=== PATIENT | female | born 1975 | race Caucasian/White ===

== ENCOUNTER → 2018-01-28 11:54 | Outpatient (CLI) | payer OTHER, SELFPAY ==
[2018-01-28 14:03] LABS: hCG Titer Quant., Serum < 1 mIU/mL (<9 non-preg)
[2018-01-28 14:09] LABS: Hemoglobin A1c 5.3 % (4.2-6.3)
[2018-01-28 14:58] LABS: Progesterone Level 0.17 ng/mL (See Comment)
[2018-01-28 21:32] LABS: Estradiol 46.1 pg/mL; Free T3 3.1 pg/mL (2.18-3.98); T4 Free Direct 1.27 ng/dL (0.76-1.46); Thyroid Stim Hormone (TSH) 1.47 uIU/mL (0.358-3.74)
== END ==
PROVIDERS: Visit Provider Obstetrics & Gynecology
DX: N92.6 Irregular menstruation, unspecified (principal)
CPT/HCPCS: 36415; 82670; 83036; 84144; 84403; 84439; 84443; 84481; 84702

== ENCOUNTER → 2018-01-30 14:12 | Outpatient (CLI) | payer OTHER, SELFPAY ==
--- NOTE | 2018-01-30 14:16 | US_ITS ---
STUDY: ULTRASOUND TRANSVAGINAL CLINICAL: Female, 42 years old. Irregular menses. TECHNIQUE: Transabdominal and Transvaginal COMPARISON: 12/20/2014. FINDINGS: Normal uterine size measuring 9.3 x 5.4 x 4.1 cm in maximal craniocaudal dimension. There is a 1.1 cm uterine fibroid in the posterior uterine body. Uterus is anteverted and midline. Normal endometrial thickness measuring 5 mm. There are no endometrial masses, and there is no fluid in the endometrial cavity. Endometrial echoes are hyperechoic. Normal uterine cervix. Small nabothian cyst. Normal right ovary, measuring 2.6 x 2.0 x 1.6 cm. There are multiple follicles without a dominant cyst. Normal left ovary, measuring 3.8 x 4.9 x 4.3 cm. There is a complex 3.8 cm cystic mass. Another complex mass measures 3 cm greatest dimension. Recommend follow-up in one or 2 menstrual periods. There is no free fluid in the pelvis. Normal bladder contour with a volume of 4 64 cc. US/Transvaginal w/Preg US IMPRESSION: Complex cystic masses in the left ovary, most likely complicated cysts. Recommend follow-up in one or 2 menstrual periods. Small uterine fibroid. Electronically Signed: Adam Mai MD at 16:31 EDT , Service support ,
--- NOTE | 2018-01-30 14:16 | US_ITS ---
STUDY: ULTRASOUND TRANSVAGINAL CLINICAL: Female, 42 years old. Irregular menses. TECHNIQUE: Transabdominal and Transvaginal COMPARISON: 12/20/2014. FINDINGS: Normal uterine size measuring 9.3 x 5.4 x 4.1 cm in maximal craniocaudal dimension. There is a 1.1 cm uterine fibroid in the posterior uterine body. Uterus is anteverted and midline. Normal endometrial thickness measuring 5 mm. There are no endometrial masses, and there is no fluid in the endometrial cavity. Endometrial echoes are hyperechoic. Normal uterine cervix. Small nabothian cyst. Normal right ovary, measuring 2.6 x 2.0 x 1.6 cm. There are multiple follicles without a dominant cyst. Normal left ovary, measuring 3.8 x 4.9 x 4.3 cm. There is a complex 3.8 cm cystic mass. Another complex mass measures 3 cm greatest dimension. Recommend follow-up in one or 2 menstrual periods. There is no free fluid in the pelvis. Normal bladder contour with a volume of 4 64 cc. US/Pelvic (Non ) IMPRESSION: Complex cystic masses in the left ovary, most likely complicated cysts. Recommend follow-up in one or 2 menstrual periods. Small uterine fibroid. Electronically Signed: Adam Mai MD at 16:31 EDT , Service support ,
== END ==
PROVIDERS: Visit Provider Obstetrics & Gynecology
DX: N92.6 Irregular menstruation, unspecified (principal)
CPT/HCPCS: 76817; 76856; 93976

== ENCOUNTER → 2018-08-11 15:57 | Outpatient (CLI) | payer OTHER, SELFPAY ==
--- NOTE | 2018-08-11 16:00 | US_ITS ---
STUDY: ULTRASOUND TRANSVAGINAL CLINICAL: Female, 42 years old. Follow-up of left ovarian cyst TECHNIQUE: Transvaginal COMPARISON: January 30, 2018 FINDINGS: The uterus is normally anteverted and measures 9.3 x 4.9 x 4.5 cm. The small 1.1 cm fibroid noted in the prior examination is not appreciated in today's study. The endometrial canal is 1.2 cm in thickness. Both ovaries are visualized and demonstrate normal Doppler flow. The right ovary measures 2.2 x 2.3 x 1.3 cm. The left ovary is larger and measures 5.7 x 3.2 x 3.4 cm. There is a 4.0 x 2.8 x 3.1 cm cyst in the left ovary. This is slightly larger than the cyst which had been seen in the prior examination and still has some debris within it. There is no free fluid in the cul-de-sac. US/Pelvic (Non ) IMPRESSION: The tiny 1 cm fibroid noted in the previous study is not appreciated in today's examination. There is a 4.0 x 2.8 x 3.1 cm left ovarian cyst. This is slightly larger than the cyst which had been seen previously. There is still some debris within the cyst Electronically Signed: Rodriguez Hunter MD at 6:38 EDT Tel , Service support ,
--- NOTE | 2018-08-11 16:22 | US_ITS ---
STUDY: ULTRASOUND TRANSVAGINAL CLINICAL: Female, 42 years old. Follow-up of left ovarian cyst TECHNIQUE: Transvaginal COMPARISON: January 30, 2018 FINDINGS: The uterus is normally anteverted and measures 9.3 x 4.9 x 4.5 cm. The small 1.1 cm fibroid noted in the prior examination is not appreciated in today's study. The endometrial canal is 1.2 cm in thickness. Both ovaries are visualized and demonstrate normal Doppler flow. The right ovary measures 2.2 x 2.3 x 1.3 cm. The left ovary is larger and measures 5.7 x 3.2 x 3.4 cm. There is a 4.0 x 2.8 x 3.1 cm cyst in the left ovary. This is slightly larger than the cyst which had been seen in the prior examination and still has some debris within it. There is no free fluid in the cul-de-sac. US/Transvaginal Non- IMPRESSION: The tiny 1 cm fibroid noted in the previous study is not appreciated in today's examination. There is a 4.0 x 2.8 x 3.1 cm left ovarian cyst. This is slightly larger than the cyst which had been seen previously. There is still some debris within the cyst Electronically Signed: Rodriguez Hunter MD at 6:38 EDT Tel , Service support ,
== END ==
PROVIDERS: Family Provider Obstetrics & Gynecology; PCP Obstetrics & Gynecology; Referring Provider Obstetrics & Gynecology; Visit Provider Obstetrics & Gynecology
DX: N92.6 Irregular menstruation, unspecified (principal); N93.8 Other specified abnormal uterine and vaginal bleeding; D25.9 Leiomyoma of uterus, unspecified
CPT/HCPCS: 76830; 76856; 93976

== ENCOUNTER → 2018-08-17 15:08 | Outpatient (CLI) | payer OTHER, SELFPAY ==
[2018-08-20 13:30] LABS: HPV Reflexed? NOT INDICATED
== END ==
PROVIDERS: Visit Provider Obstetrics & Gynecology
DX: Z12.4 Encounter for screening for malignant neoplasm of cervix (principal)
CPT/HCPCS: 88175; G0145

== ENCOUNTER 2018-10-05 11:12 | Day surgery (SDC) | payer OTHER, SELFPAY ==
[2018-09-30 12:24] LABS: Hemoglobin 13.3 g/dl (12.0-15.0); Mean Corp Hgb Conc 33.3 g/gl (32-36); Mean Corpuscular Hgb 28.4 pg (27.0-32.0); Mean Corpuscular Volume 85.5 fL (81-99); Mean Platelet Vol. 11.3 fl (6.2-12.0); Platelet Count 258 K/mm3 (150-450); RBC Distribution Width CV 13.5 % (11.6-14.6); RBC Distribution Width SD 41.6 fl (35.1-43.9); Red Blood Count 4.68 M/mm3 (4.2-5.4); White Blood Count 6.5 K/mm3 (4.4-11.0)
[2018-09-30 12:25] LABS: Scan Indicated on CBC? Y/N NO
[2018-09-30 12:26] LABS: Prothrombin Time (Protime)PT. 13.5 SECONDS (11.7-14.9)
[2018-09-30 12:27] LABS: Partial Thromboplast Time 32.1 Seconds (24.1-36.2)
[2018-10-05 11:42] VITALS: BP 109/66; PULSE 78; RESP 16; TEMP 37.4; O2SAT 99; BMI 27.8
[2018-10-05 11:43] LABS: Internal QC Validated? YES +Cl - CLEAR BKGD; Pregnancy, Urine Negative Negative
[2018-10-05 12:01] LABS: Anion Gap 7 (5-15); BUN 11 mg/dL (7-18); Calcium,Total 8.7 mg/dL (8.5-10.1); Chloride 106 mmol/L (98-107); Creatinine, Serum 0.79 mg/dL (0.55-1.02); EST Glomerular Filtration Rate 85 mL/min (>60); Est Glom Filt Rate - Afr Amer 102 mL/min (>60); Estimated Creatinine Clearance 95.96 ml/min; Glucose 76 mg/dL (74-106); Potassium 3.7 mmol/L (3.5-5.1); Sodium Level 140 mmol/L (136-145)
--- NOTE | 2018-10-05 12:05 | PCM.HP.OB ---
- Problem List (1) Ovarian cyst Status: Acute History Date of Admission: 10/05/18 History of this : This is a 42 year-old, G [], P [], at weeks gestational age. Allergies sulfamethoxazole [From Bactrim] Adverse Reaction (Verified 09/28/18 12:58) Nausea/Vom/Diarrhea trimethoprim [From Bactrim] Adverse Reaction (Verified 09/28/18 12:58) Nausea/Vom/Diarrhea Home Medications: Home Medications Multivit with Calcium,Iron,Min [Multiple Vitamins For Women] 1 each PO DAILY 09/28/18 Smoking Status: Never smoker History Past Pregnancies: Past Pregnancies Delivery Date Name GA/Weeks Outcome Route Weight Gender Labor Length Anesthesia Delivery Location Provider FOB Review of Systems Constitutional: Denies: Chills, Fever, Weight Change HEENT: Denies: Difficulty Hearing, Difficulty Swallowing, Nasal bleeding, Nasal Congestion, Sore Throat Cardiovascular: Denies: Chest Pain, Palpitations Respiratory: Denies: Shortness of Breath, Wheezing Gastrointestinal: Denies: Constipation, Diarrhea, Nausea, Vomiting Genitourinary: Denies: Dysuria, Frequency, Hematuria, Incontinence, Urgency Musculoskeletal: Denies: Joint Pain, Muscle pain Skin: Denies: Lesions, Skin Changes Neurological: Denies: Focal weakness, Numbness Psychiatric: Denies: Anxiety, Depression Endocrine: Denies: Heat/ Cold Intolerance Hematologic/ Lymphatic: Denies: Easy Bleeding Physical Exam Vitals: Vital Signs Temp Pulse Resp BP Pulse Ox 99.3 F H 78 16 109/66 99 10/05/18 11:42 10/05/18 11:42 10/05/18 11:42 10/05/18 11:42 10/05/18 11:42 General: Alert, Oriented x3, No apparent distress HEENT: Atraumatic, Normocephalic. Negative for: Thyromegaly, Lymphadenopathy Cardiovascular: Regular rate, Regular Rhythm Lungs: Clear to auscultation Abdomen: Bowel Sounds Present, Gravid Neurological: Deep Tendon Reflexes 2+/4 and Symmetrical, Neuro grossly intact LUMBER PRESS OPERATOR: Normal external genitalia. Negative for: Vulvar lesions Assessment/Plan All Active Problems Ovarian cyst (Acute) This is a 42 year-old, GO. History of endometriosis 1. Ovarian cyst, chronic laparoscopic removal of cyst and possibly ovary prior surgeries to pelvis for endometriosis bowel prep in the home setting the preop preparation including bowel prep, the intraop procedures and the postop recovery reviewed. The risks of bleeding, infection and other organ damage including bladder, bowel and ureteral injury.
--- NOTE | 2018-10-05 13:10 | EMB_PTH ---
PATIENT: JOSÉ LUIS ESCOBAR LOC: [facility] [place] U#:[id number] AGE/SX: 42/F ROOM: RE10/05/[address]: Dr. Ariana Clemente MD : 1975 BED: DIS: 10/05/2018 SPEC #: [id number] RECD: 10/06/18 10:24 STATUS: ML AIDEN #: [id number] CRISELDA: 10/05/18 13:[address]: Ariana Clemente DEPT: SURGICAL PATHOLOGY RECD BY: Jimmy Coleman ENTERED: 10/06/18 11:53 SP TYPE: ENDOM BX/C OLGA DR: No Primary Care Phys Tissues: A - Endometrium, NOS B - Left ovary Procedures: Surgery Specimen Level IV HEADER OPERATION: Laparoscopic robotic assisted left salpingo-oophorectomy, D & C PRE-OP DIAGNOSIS: Left ovarian cyst TISSUE SUBMITTED: A - Endometrial curettings, B - Left fallopian tube and ovary MICROSCOPIC DIAGNOSIS A. Endometrial curettings: Scant strip of benign endometrial epithelium. Fragments of benign endocervical mucosa. See comment. B. Left fallopian tube and ovary: Ovarian tissue with hemorrhagic corpus luteal cyst. Fallopian tube tissue is not identified in the submitted specimen. SJ:rg 10/07/18 COMMENT A. The specimen predominantly consists of endocervical mucosa. Correlation with clinical findings and appropriate follow up are necessary. MICROSCOPIC DESCRIPTION Slides are reviewed. GROSS DESCRIPTION A - Received in fixative is one container labeled with the patient's name and designated endometrial curettings. The specimen consists of light melendrez mucoid material aggregating to 1.5 x 1 x <0.1 cm. The specimen is totally submitted in one cassette. B - Received in fixative is one container labeled with the patient's name and designated left fallopian tube and ovary. The specimen consists of six irregular fragments of pink-melendrez soft tissue measuring in aggregate 7 x 5 x 0.6 cm. Distinct ovarian or fallopian tube tissue is not identified. Sections reveal smooth, glistening cut surfaces. The specimen is totally submitted in four cassettes. / AM:anna 10/06/18 TC:5 CPT: 36696 x2
--- NOTE | 2018-10-05 15:38 | PCM.OPRPT ---
Problem List (1) Ovarian cyst Status: Acute Report of Operation Date of Procedure: 10/05/18 Pre-Operative Diagnosis: Ovarian cyst of a chronic nature and history of endometriosis Post-Operative Diagnosis: Same plus pelvic adhesive disease Surgery/Procedure Performed:: Extensive enteral lysis, robotic assisted operative laparoscopy with a left salpingo-oophorectomy Description of Surgical Findings:: Uterus was then noted to be sounded to approximately 8 cm in an anterior position. Cervical eyes was easily dilated with sharp curettage of the endometrium the uterine manipulator was placed to the exact of the step. Of an endometrioma type encompassing the fallopian tube and ovary on the left side and stuck in the close posterior cul-de-sac area. hcc coders: Maurice Chawla hcc coders: Vi Flores Type of Anesthesia:: General Anesthesiologist: Efrem Blanchard Special Medications: Cefotetan Specimen's removed: Endometrium, left ovary, left fallopian tube Drains: None Estimated Blood Loss (mL): Minimal Fluids Replaced: Lactated Ringer Description of Procedure: Patient underwent a bowel preparation in the home setting and presented to the operating suite. She had undergone a general anesthetic after being placed on the patient's sandbag fashion. Tilt test that indicated no movement.. The cervical eyes was easily dilated uterus was sounded to approximately 8 cm in anterior position. Gloves were changed and moved to the top the patient Black's point was noted on the anatomy of upon investigation, it was noted that there were peritoneal adhesions to the anterior abdominal wall region there was a large amount of pelvic adhesive disease of the bowel to the left pelvic sidewall. At this point time the decision to remove the robotic procedure was made and the family was informed trocar sites were commencing for the robotic procedure with an 8 mm camera arm being the camera trocar being placed at the umbilical region under direct visualization and well away from the fundal region and well away from the area of the adhesions. As well. 5 mm left upper quadrant site and trocar was converted to an 8 mm fenestrated bipolar in the right robotic arm became the monopolar johnathan. Camera had been placed just prior disease. This point time I the gowned and moved to the console of the robot to take over control of the robot. Beginning to restore normal anatomy and moving to the left pelvic wall there is adhesions were removed as well again to restore the normal anatomy. Try to identify the ureter and dissected the ureter away from the area of anticipated left salpingo-oophorectomy, the round ligament was grasped cauterized and transected the broad ligament anterior posterior leaves. Sequential cauterization and dissection of the ovary away from the bowel pelvic sidewall posterior cul-de-sac anterior uterus difficulty in identifying the ureter over the left pelvic brim due to adhesive disease was occurring and Dr. Jerome was called to the OR to place a stent for further reassurance of patency of the right or left ureter and no dissection near that area. Upon his arrival and placement of the stent then the final infundibulopelvic ligament was cauterized and transected until his arrival pieces of the fallopian tube and ovary had been sequentially removed by my promotions assistant sales marketing to the 8 mm promotions assistant sales marketing port. The ovary was removed by my promotions assistant sales marketing irrigation of the entire pelvis occurred a piece of Interceed was placed over the raw area of the prior dissection which was basically the pelvic brim area into the posterior cul-de-sac and hemostasis was noted.. Dr. Mckee had to remove the stent at this point time the robot was de-docked from the patient and the trochars were introduced were sequentially removed from the abdominal cavity release of the with 4-0 Monocryl in subcuticular fashion. Sponge instrument and needle counts were correct x2 to the home setting Grafts/Implants Used: None - Complications Intraoperative consult from Dr. Gonzalez, urologist left stent was placed by Dr. alfaro to assure no dissection around that left ureter due to - Admit VTE Documentation VTE Present on Admission: No VTE Mechan Device Prophylaxis: SCD's VTE Pharm Prophylaxis ordered?: No Reason prophylaxis not ordered:: Procedure Not Indicated
--- NOTE | 2018-10-05 15:43 | OP.PCM_ITS ---
Problem List (1) Ovarian cyst Status: Acute Report of Operation Date of Procedure: 10/05/18 Pre-Operative Diagnosis: Ovarian cyst of a chronic nature and history of endometriosis Post-Operative Diagnosis: Same plus pelvic adhesive disease Surgery/Procedure Performed:: Extensive enteral lysis, robotic assisted operative laparoscopy with a left salpingo-oophorectomy Description of Surgical Findings:: Uterus was then noted to be sounded to approximately 8 cm in an anterior position. Cervical eyes was easily dilated with sharp curettage of the endometrium the uterine manipulator was placed to the exact of the step. Of an endometrioma type encompassing the fallopian tube and ovary on the left side and stuck in the close posterior cul-de-sac area. security flex officer: Maurice Chawla security flex officer: Vi Flores Type of Anesthesia:: General Anesthesiologist: Efrem Blanchard Special Medications: Cefotetan Specimen's removed: Endometrium, left ovary, left fallopian tube Drains: None Estimated Blood Loss (mL): Minimal Fluids Replaced: Lactated Ringer Description of Procedure: Patient underwent a bowel preparation in the home setting and presented to the operating suite. She had undergone a general anesthetic after being placed on the patient's sandbag fashion. Tilt test that indicated no movement.. The cervical eyes was easily dilated uterus was sounded to approximately 8 cm in anterior position. Gloves were changed and moved to the top the patient Black's point was noted on the anatomy of upon investigation, it was noted that there were peritoneal adhesions to the anterior abdominal wall region there was a large amount of pelvic adhesive disease of the bowel to the left pelvic sidewall. At this point time the decision to remove the robotic procedure was made and the family was informed trocar sites were commencing for the robotic procedure with an 8 mm camera arm being the camera trocar being placed at the umbilical region under direct visualization and well away from the fundal region and well away from the area of the adhesions. As well. 5 mm left upper quadrant site and trocar was converted to an 8 mm fenestrated bipolar in the right robotic arm became the monopolar johnathan. Camera had been placed just prior disease. This point time I the gowned and moved to the console of the robot to take over control of the robot. Beginning to restore normal anatomy and moving to the left pelvic wall there is adhesions were removed as well again to restore the normal anatomy. Try to identify the ureter and dissected the ureter away from the area of anticipated left salpingo-oophorectomy, the round ligament was grasped cauterized and transected the broad ligament anterior posterior leaves. Sequential cauterization and dissection of the ovary away from the bowel pelvic sidewall posterior cul-de-sac anterior uterus difficulty in identifying the ureter over the left pelvic brim due to adhesive disease was occurring and Dr. Jerome was called to the OR to place a stent for further reassurance of patency of the right or left ureter and no dissection near that area. Upon his arrival and placement of the stent then the final infundibulopelvic ligament was cauterized and transected until his arrival pieces of the fallopian tube and ovary had been sequentially removed by my orthotic assistant to the 8 mm orthotic assistant port. The ovary was removed by my orthotic assistant irrigation of the entire pelvis occurred a piece of Interceed was placed over the raw area of the prior dissection which was basically the pelvic brim area into the posterior cul-de-sac and hemostasis was noted.. Dr. Mckee had to remove the stent at this point time the robot was de-docked from the patient and the trochars were introduced were sequentially removed from the abdominal cavity release of the with 4-0 Monocryl in subcuticular fashion. Sponge instrument and needle counts were correct x2 to the home setting Grafts/Implants Used: None - Complications Intraoperative consult from Dr. Gonzalez, urologist left stent was placed by Dr. alfaro to assure no dissection around that left ureter due to - Admit VTE Documentation VTE Present on Admission: No VTE Mechan Device Prophylaxis: SCD's VTE Pharm Prophylaxis ordered?: No Reason prophylaxis not ordered:: Procedure Not Indicated
--- NOTE | 2018-10-05 15:49 | PCM.DC.TUB ---
Discharge Diet: - - Low residue diet with full liquids to soft diet x 72 hours and then return to normal diet. Water intake recommended to be 120 ounces at minimum daily x 72 hours. Discharge Activity: Return to Normal Activity, May Drive - when you are no longer taking pain/narcotic medicines., May Shower, May Take a Tub Bath - in 7 days. Return to work on:: 10/12/18 May shower in (days): 0 - TODAY May resume sexual activity in: 2 weeks Weight Bearing Status: Full weight bearing Lifting Restrictions: 5 pounds x 1 week Additional Activity Instructions:: Ambulate often the next week after surgery. Call your doctor if your incision/area has: Sudden Increased Bleeding Call your doctor if you observe: Fever of 101 or Higher, Inability to urinate, Inability to have a bowel movement, Using more than one pad per hour Remove Dressing in (days):: 1 - remove bandaids in 24 hours Cleanse incision/area with: Soap & Water Allergies/Adverse Reactions: Allergies sulfamethoxazole [From Bactrim] Adverse Reaction (Verified 09/28/18 12:58) Nausea/Vom/Diarrhea trimethoprim [From Bactrim] Adverse Reaction (Verified 09/28/18 12:58) Nausea/Vom/Diarrhea Medications to take at Discharge Multivit with Calcium,Iron,Min [Multiple Vitamins For Women] 1 each PO DAILY 09/28/18 Primary Care Physician: Care Physician,No Primary [Primary Care Provider] - Test Results: Test results from this visit will be discussed in further detail at your follow-up appointment, if applicable. Please Follow Up With: Ariana Clemente MD - [phone] When: 1 week after surgery
--- NOTE | 2018-10-05 15:53 | DCINST_ITS ---
Discharge Diet: - - Low residue diet with full liquids to soft diet x 72 hours and then return to normal diet. Water intake recommended to be 120 ounces at minimum daily x 72 hours. Discharge Activity: Return to Normal Activity, May Drive - when you are no longer taking pain/narcotic medicines., May Shower, May Take a Tub Bath - in 7 days. Return to work on:: 10/12/18 May shower in (days): 0 - TODAY May resume sexual activity in: 2 weeks Weight Bearing Status: Full weight bearing Lifting Restrictions: 5 pounds x 1 week Additional Activity Instructions:: Ambulate often the next week after surgery. Call your doctor if your incision/area has: Sudden Increased Bleeding Call your doctor if you observe: Fever of 101 or Higher, Inability to urinate, Inability to have a bowel movement, Using more than one pad per hour Remove Dressing in (days):: 1 - remove bandaids in 24 hours Cleanse incision/area with: Soap & Water Allergies/Adverse Reactions: Allergies sulfamethoxazole [From Bactrim] Adverse Reaction (Verified 09/28/18 12:58) Nausea/Vom/Diarrhea trimethoprim [From Bactrim] Adverse Reaction (Verified 09/28/18 12:58) Nausea/Vom/Diarrhea Medications to take at Discharge Multivit with Calcium,Iron,Min [Multiple Vitamins For Women] 1 each PO DAILY 09/28/18 Primary Care Physician: Care Physician,No Primary [Primary Care Provider] - Test Results: Test results from this visit will be discussed in further detail at your follow- up appointment, if applicable. Please Follow Up With: Ariana Clemente MD - [phone] When: 1 week after surgery
[2018-10-05 16:09] VITALS: BP 109/66; BP 119/72; PULSE 79; RESP 16; TEMP 37.3; O2SAT 100
[2018-10-05 16:15] VITALS: BP 109/66; BP 110/65; PULSE 64; RESP 18; O2SAT 97
[2018-10-05 16:30] VITALS: BP 105/61; BP 109/66; PULSE 63; RESP 18; TEMP 37.2; O2SAT 100
--- NOTE | 2018-10-05 17:09 | PCM.OPRPT ---
Report of Operation Date of Procedure: 10/05/18 Pre-Operative Diagnosis: Ovarian cyst of a chronic nature and history of endometriosis Post-Operative Diagnosis: Same plus pelvic adhesive disease Surgery/Procedure Performed:: Cystoscopy and Left ureteral catheterization. Description of Surgical Findings:: 42 yo female who was undergoing robotic removal of ovary, I was called in to assist as there was a question of ureteral involvement. On the left pelvis there was a tubula structure next ovaria but it did not peristatis, did not look like the ureter, I did a cystoscopy and placed a stent on the left side. Dr Clemente then dissected further removed the ovary and cut through the tissue, removed the ureteral catheter and urine was clear, It did not look like the ureter was involved. reported my findings to her and scrubbed out of the case. electronic device repairer: Maurice Chawla electronic device repairer: Vi Flores Type of Anesthesia:: General Anesthesiologist: Efrem Blanchard Special Medications: Cefotetan Specimen's removed: Endometrium, left ovary, left fallopian tube Drains: None Estimated Blood Loss (mL): Minimal Fluids Replaced: Lactated Ringer
--- NOTE | 2018-10-05 17:13 | OP.PCM_ITS ---
Report of Operation Date of Procedure: 10/05/18 Pre-Operative Diagnosis: Ovarian cyst of a chronic nature and history of e ndometriosis Post-Operative Diagnosis: Same plus pelvic adhesive disease Surgery/Procedure Performed:: Cystoscopy and Left ureteral catheterization. Description of Surgical Findings:: 42 yo female who was undergoing robotic removal of ovary, I was called in to assist as there was a question of ureteral involvement. On the left pelvis there was a tubula structure next ovaria but it did not peristatis, did not look like the ureter, I did a cystoscopy and placed a stent on the left side. Dr Clemente then dissected further removed the ovary and cut through the tissue, removed the ureteral catheter and urine was clear, It did not look like the ureter was involved. reported my findings to her and scrubbed out of the case. garbage worker: Maurice Chawla garbage worker: Vi Flores Type of Anesthesia:: General Anesthesiologist: Efrem Blanchard Special Medications: Cefotetan Specimen's removed: Endometrium, left ovary, left fallopian tube Drains: None Estimated Blood Loss (mL): Minimal Fluids Replaced: Lactated Ringer
[2018-10-05 19:18] VITALS: BP 100/64; BP 109/66; PULSE 75; RESP 16; TEMP 37.2; O2SAT 97
== END 2018-10-05 19:22 | disposition home or self-care (01) ==
LOC: SDC 11:13 → AC 11:14
PROVIDERS: Referring Provider Obstetrics & Gynecology; Visit Provider Obstetrics & Gynecology
PROC: (CPT 58720; principal; 2018-10-05 12:55)
DX: N83.12 Corpus luteum cyst of left ovary (principal); N73.6 Female pelvic peritoneal adhesions (postinfective); N80.9 Endometriosis, unspecified
CPT/HCPCS: 52332; 58661; 36415; 80048; 81025; 85027; 85610; 85730; 86850; 86900; 88305; J7120; A4216; C1769; J2405

== ENCOUNTER → 2019-11-05 | Outpatient (CLI) | payer OTHER, SELFPAY ==
[2019-11-11 20:07] LABS: Age Gdln ACOG Testing 30-65 (.)
[2019-11-11 20:21] LABS: HPV APTIMA, High Risk Negative (Negative); HPV Reflexed? YES, CHARGE PATIENT
== END | disposition home or self-care (01) ==
PROVIDERS: Referring Provider Obstetrics & Gynecology; Visit Provider Obstetrics & Gynecology
DX: Z12.4 Encounter for screening for malignant neoplasm of cervix (principal)
CPT/HCPCS: 87624; 88175; G0145

== ENCOUNTER 2021-08-31 06:18 | Emergency (ER) | payer OTHER, SELFPAY ==
[2021-08-31 06:19] VITALS: BP 135/72; PULSE 71; RESP 16; TEMP 36.8; O2SAT 99; BMI 29.9
--- NOTE | 2021-08-31 06:37 | CT_ITS ---
STUDY: CT ABDOMEN AND PELVIS WITHOUT CONTRAST REASON FOR EXAM: Female, 45 years old. Kidney Stone RADIATION DOSAGE (If Supplied By Facility): CTDIvol = ( 13.42 ) mGy, DLP = ( 653.90 ) mGycm TECHNIQUE: Transaxial images were obtained from the dome of the diaphragm to the symphysis pubis without oral contrast, and without intravenous contrast. Sagittal and coronal images were reconstructed. Individualized dose optimization techniques were used for this CT. COMPARISON: None. FINDINGS: The visualized lung bases are unremarkable. The visualized portions of the heart are within normal limits. Normal liver. Normal gallbladder and extrahepatic biliary system. Normal spleen. Normal pancreas. Normal bilateral adrenal glands. Normal right kidney. Normal left kidney. Normal visualized stomach. Normal small intestine. Normal colon. The appendix is visualized and appears normal. Normal abdominal aorta. Normal inferior vena cava. Normal retroperitoneum. Normal urinary bladder. 4 cm corpus luteum cyst of the left ovary. Normal abdominal wall. Mild levoscoliosis of lumbar spine with degenerative disc disease. CT/Abdomen/Pelvis without Cont IMPRESSION: 4 cm corpus luteum cyst of the left ovary. Electronically Signed: Jimmy Eli MD at 8:06 EDT Tel , Service support ,
--- NOTE | 2021-08-31 06:44 | EX.ED.DYSGE1 ---
HPI History of Present Illness Chief Complaint: Abd Pain Informant: patient Narrative Narrative: 45-year-old female presents to emergency department with left lower abdominal pain. Patient states that she noticed it yesterday but it was not very severe. Then during the middle of the night the pain became severe and sharp. She notes no position of comfort. She notes that she had a normal bowel movement this morning. She denies any urinary symptoms. No prior history of kidney stones or diverticulitis. The abdomen she states is not particularly tender to palpation. The pain does seem to radiate to the left flank. PFSH PFSH Home Medications [id number] [Multiple Vitamins For Women] 1 ea PO DAILY 09/28/18 [History Last Taken Unknown] Allergy/AdvReac Type Severity Reaction Status Date / Time sulfamethoxazole AdvReac Nausea/Vom/ Verified 08/31/21 06:23 [From Bactrim] Diarrhea trimethoprim [From Bactrim] AdvReac Nausea/Vom/ Verified 08/31/21 06:23 Diarrhea Surgical History H/O laparoscopy H/O laparoscopy History of laparotomy Hx of oophorectomy Social History (Updated 08/31/21 @ 06:[address] Matthew Fermin DO) Smoking Status: Never smoker substance use type: does not use ROS ROS ED Constitutional Constitutional ED: Denies chills or weight loss Eyes Eyes: Denies change in vision or diplopia ENT ENT ED: Denies ear pain, rhinorrhea or sore throat Cardiovascular Cardiovascular: Denies chest pain, orthopnea, palpitations or racing heartbeat Respiratory/Chest Respiratory/Chest: Denies cough, dyspnea or orthopnea Gastrointestinal Gastrointestinal: Reports abdominal pain and nausea; Denies constipation, diarrhea or vomiting Genitourinary Genitourinary ED: Denies dysuria, hematuria or urinary frequency Musculoskeletal Musculoskeletal: Denies arthralgias or myalgias Integumentary Denies abscess or rash Neurologic Neurologic: Denies headache(s) or weakness Psychiatric Psychiatric: Denies anxiety, depression, suicidal ideation or suicidal thoughts Endocrine Endocrinology: Denies polydipsia, polyphagia or polyuria Allergic/Immunologic Allergic/Immunologic ED: Denies mouth swelling, tongue swelling or urticaria EXAM Physical Exam Const Vital Signs: 08/31/21 06:19 Temperature 98.3 F Temperature Source Temporal Pulse Rate 71 Respiratory Rate 16 Blood Pressure 135/72 H Blood Pressure Mean 93 Pulse Ox 99 Oxygen Delivery Method Room Air Positive well nourished and well developed General Appearance ED: well developed HEENT Reports normocephalic, head/scalp atraumatic, TM's clear and moist mucous membranes Negative for trauma Tympanic Membrane ED: Yes TM's clear Eyes PERRL and EOMs intact bilaterally Neck no lymphadenopathy, supple and no JVD Resp normal respiratory effort and clear to auscultation bilaterally Cardio regular rate, regular rhythm and no murmurs GI normal to inspection, nondistended, normoactive bowel sounds and non-tender Palpation: soft Back/Spine no CVA tenderness and normal ROM Extremity normal to inspection General Extremety ED: Negative for edema General Extremity: Negative for edema Neuro oriented x3 and CN's II-XII intact bilaterally Sensorium / Orientation: alert Motor Exam: strength 5/5 throughout Psych mental status grossly normal Mood & Affect: Negative for depressed or tearful Skin no rashes or lesions noted and no wounds MDM MDM MDM Narrative Medical decision making narrative: Patient received Toradol morphine Zofran and fluids. Discharge Plan Triage Chief Complaint: Abd Pain ED Provider: Matthew Fermin Dx/Rx/DC Orders Prescriptions: No Action Multiple Vitamin, Womens 1 EACH tablet 1 ea PO DAILY RF: 0 Primary Care Provider: Care Physician,No Primary
[2021-08-31] MEDS: 0.9% Normal Saline 1,000 ML 250 ML IV (06:47)
[2021-08-31] MEDS: Ondansetron 4 MG/2 ML Vial IV (06:47)
[2021-08-31] MEDS: Ketorolac 30 MG/ML Syringe IV (06:47)
[2021-08-31] MEDS: Morphine 4 MG/ML Syringe IV (06:48)
[2021-08-31 06:50] LABS: Mucous, Urine 0 SEEN /hpf (<or=2+); Red Blood Cells-Urine 0 SEEN /hpf (0-5); White Blood Cells 0 SEEN /hpf (0-5)
[2021-08-31 06:53] LABS: Absolute Lymphocyte Count 1.15 X10^3/uL (0.83-4.51); Absolute Neutrophil Count 4.9 X10^3/uL (2.0-7.7); Basophil# 0.04 X10^3/uL; Basophil% 0.6 % (0-1); Eosinophil# 0.05 X10^3/uL; Eosinophils% 0.7 % (0-5); Hematocrit 39.6 % (37-47); Hemoglobin 13.1 g/dL (12.0-15.0); Lymphocyte # 1.15 X10^3/ul (0.83-4.51); Lymphocyte % 16.9 % (19-41); Mean Corp Hgb Conc 33.1 g/dL (32-36); Mean Corpuscular Hgb 27.8 pg (27.0-32.0); Mean Corpuscular Volume 83.9 fL (81-99); Mean Platelet Vol. 11.3 fl (6.2-12.0); Monocyte# 0.63 X10^3/uL; Monocyte% 9.3 % (0-10); NRBC Flagged by Analyzer 0 % (0-5); Neutrophil % 72.2 % (47-70); Platelet Count 281 K/mm3 (150-450); RBC Distribution Width CV 13.2 % (11.6-14.6); Red Blood Count 4.72 M/mm3 (4.2-5.4); White Blood Count 6.8 K/mm3 (4.4-11.0)
[2021-08-31 07:01] LABS: Glucose, Dipstick Normal (Normal); Ketone-Dipstick 5 mg/dl (Negative); Leukocyte Esterase-Dipstick Negative /ul (Negative); Nitrite-Dipstick Negative (Negative); Occult Blood-Urine Negative /ul (Negative); Protein-Dipstick 15 mg/dl (Negative); Specific Gravity, Urine 1.015 (1.002-1.030); Urine Bilirubin Dipstick Negative (Negative); Urine Urobilinogen Normal (Normal)
[2021-08-31 07:02] LABS: Color, Urine Yellow (Yellow)
[2021-08-31 07:03] LABS: Urine Clarity Sl Cloudy (Clear)
[2021-08-31 07:04] LABS: Internal QC Validated? YES +Cl - CLEAR BKGD
[2021-08-31 07:05] LABS: Pregnancy, Urine Negative Negative
[2021-08-31 07:07] LABS: Anion Gap 5 (5-15); BUN 15 mg/dL (7-18); BUN/Creat Ratio 18.6 RATIO (10-20); Calcium,Total 9.1 mg/dL (8.5-10.1); Chloride 107 mmol/L (98-107); Creatinine, Serum 0.81 mg/dL (0.55-1.02); EST Glomerular Filtration Rate 81 mL/min (>60); Est Glom Filt Rate - Afr Amer 98 mL/min (>60); Glucose 96 mg/dL (74-106); Potassium 3.7 mmol/L (3.5-5.1); Sodium Level 138 mmol/L (136-145)
[2021-08-31 07:08] LABS: Bacteria 1+ /hpf (None Seen); Squamous Epithelial Cells - UA 0-5 SEEN /hpf (5-10)
[2021-08-31 07:09] LABS: Amorphous Sediment 2+
--- NOTE | 2021-08-31 09:23 | US_ITS ---
STUDY: ULTRASOUND OF THE FEMALE PELVIS - COMPLETE REASON FOR EXAM: Female, 45 years old. left pelvic pain, abn CT;s/p L salpingoophorectomy LMP: TECHNIQUE: Transvaginal TECHNICAL QUALITY: Adequate. COMPARISON: CT earlier today, pelvic ultrasound 08/11/2018 FINDINGS: The uterus is anteverted and is in a midline position. The uterus measures 9.6 x 5.3 x 4.9 cm. Normal uterine cervix. The endometrium measures 12 mm in thickness, and is hyperechoic. There is no demonstrated endometrial mass. There is no demonstrated myometrial mass. I.U.D. - The patient does not have an I.U.D. The right ovary is visualized. The right ovary measures 3.5 x 1.6 x 1.3 cm. There is no right ovarian cyst or ovarian mass. There is no visualized right adnexal mass or complex lesion. There is normal arterial and normal venous vascularity. Status post left offer activity. 4.5 cm mixed cystic and solid mass in the left adnexa which may represent an endometrioma.. There is no fluid in the cul-de-sac. The pre void volume of the bladder was ml. The post void volume of the bladder was ml. Polycystic ovary disease: No. US/Transvaginal Non- IMPRESSION: 4.5 cm mixed cystic and solid left adnexal mass in a patient status post left oophorectomy possibly consistent with an endometrioma. Electronically Signed: Jimmy Eli MD at 11:13 EDT Tel , Service support ,
[2021-08-31 12:04] VITALS: BP 113/67; PULSE 68; RESP 14; O2SAT 99
== END 2021-08-31 12:05 | disposition home or self-care (01) ==
PROVIDERS: Emergency Provider Emergency Medicine
DX: N83.202 Unspecified ovarian cyst, left side (principal); Z90.721 Acquired absence of ovaries, unilateral
CPT/HCPCS: 74176; 76830; 80048; 81001; 81025; 85025; 96361; 96374; 96375; 99282; J7030; A4216; J2405